=== PATIENT | female | born 1980 | race African-American/Black ===

== ENCOUNTER 2016-11-29 12:56 | Emergency (ER) | payer BC ==
[~2016-11-29] VITALS: Ht 180.3 cm; Wt 110.9 kg
[2016-11-29] MEDS ORDERED: LIDODERM 5% P1 PATCH TD (14:20)
[2016-11-29] MEDS ORDERED: FLEXERIL10 MG PO (14:20)
[2016-11-29] MEDS ORDERED: NAPROXEN500 MG PO (14:20)
[2016-11-29 14:47] VITALS: BP 144/82
== END 2016-11-29 14:48 | disposition home or self-care (01) ==
LOC: EME 12:56
DX: S39.012A Strain of muscle, fascia and tendon of lower back, initial encounter (principal)
CPT/HCPCS: 99281; 99284; J1885